=== PATIENT | female | born 1990 | race Caucasian/White ===

== ENCOUNTER → 2022-06-23 | Outpatient (CLI) | payer BC, OTHER | LOC: US 13:30 → MAMO 14:00 | DX: Z12.4 Encounter for screening for malignant neoplasm of cervix (principal); N60.19 Diffuse cystic mastopathy of unspecified breast; N63.0 Unspecified lump in unspecified breast; N94.89 Other specified conditions associated with female genital organs and menstrual cycle | CPT/HCPCS: 76642-RT; 76830; 77065; G0279 ==